=== PATIENT | female | born 1960 | race Caucasian/White ===

== ENCOUNTER 2022-03-12 06:37 | Day surgery (SDC) | payer MEDICAID ==
[~2022-03-12] VITALS: Ht 175.3 cm; Wt 96.3 kg
[2022-03-12] MEDS ORDERED: normal saline 1000ml 1,000 ML IV SCH (07:00)
[2022-03-12] MEDS ORDERED: ZOLP5TAB2 PO (07:12)
[2022-03-12] MEDS ORDERED: PREG25CA18 PO (07:12)
[2022-03-12] MEDS ORDERED: HYDR-3686 PO (07:12)
[2022-03-12] MEDS ORDERED: ESCI-8 PO (07:12)
[2022-03-12] MEDS ORDERED: OREGANO (07:13)
[2022-03-12 08:02] VITALS: BP 145/88
[2022-03-12] MEDS ORDERED: heparin sodium, porcine/PF 100unit/ml 5ML syringe ONE (09:00)
[2022-03-12] MEDS ORDERED: fentaNYL/PF 50MCG/1 ML 2ML syringe ONE (09:00)
[2022-03-12] MEDS ORDERED: LIDOcaine 1% 30ml preserv. free vial ONE (09:00)
[2022-03-12 11:05] VITALS: BP 132/70
== END 2022-03-12 11:25 | disposition home or self-care (01) ==
LOC: SSTAY O 06:37
PROVIDERS: ATTEND Radiology Vascular & Interventional Radiology
DX: C50.912 Malignant neoplasm of unspecified site of left female breast (principal); F32.9 Major depressive disorder, single episode, unspecified; M19.90 Unspecified osteoarthritis, unspecified site; G43.909 Migraine, unspecified, not intractable, without status migrainosus; Z98.890 Other specified postprocedural states; Z88.0 Allergy status to penicillin; Z88.8 Allergy status to other drugs, medicaments and biological substances; Z79.899 Other long term (current) drug therapy
CPT/HCPCS: 36561; 76937; 77001; 87811; C1769; C1788; C1894; J1642; J3010; J7030; A4620; J3490

== ENCOUNTER 2024-06-28 06:01 | Outpatient (CLI) | payer MEDICAID ==
[~2024-06-28 06:01] MED LIST: ESCI-8 PO; HYDR-3686 PO; OREGANO; PREG25CA19 PO; ZOLP5TAB2 PO
== END 2024-06-28 23:59 | disposition home or self-care (01) ==
LOC: MRI02 06:01
PROVIDERS: ATTEND Family Medicine
DX: M47.26 Other spondylosis with radiculopathy, lumbar region (principal); M51.16 Intervertebral disc disorders with radiculopathy, lumbar region; M47.818 Spondylosis without myelopathy or radiculopathy, sacral and sacrococcygeal region; M53.3 Sacrococcygeal disorders, not elsewhere classified; M48.061 Spinal stenosis, lumbar region without neurogenic claudication; M48.08 Spinal stenosis, sacral and sacrococcygeal region; M54.50 Low back pain, unspecified
CPT/HCPCS: 72148